=== PATIENT | female | born 1965 | race Two or more races ===

== ENCOUNTER 2024-02-19 12:15 | Inpatient (IN) | payer OTHER ==
[~2024-02-19] VITALS: Ht 160 cm; Wt 78.9 kg
[2024-02-19 12:33] VITALS: BP 94/49
[2024-02-25] MEDS ORDERED: METRONIDAZOLE/SODIUM CHLORIDE 500 MG/100 ML PIGGYBACK IV SCH (14:00)
[2024-02-25] MEDS ORDERED: levoFLOXacin IN DEXTROSE 5 % 5 MG/ML PIGGYBAG IV SCH (14:00)
[2024-02-25] MEDS ORDERED: BUPIVACAINE HCL 30 ML VIAL IJ ONE (14:15)
[2024-02-25] MEDS ORDERED: LIDOCAINE HCL 1%/EPINEPHRINE 20ML VIAL IJ ONE (14:15)
[2024-02-25] MEDS ORDERED: MORPHINE SULFATE 4 MG/ML CARTRIDGE IV PRN (17:00)
[2024-02-25] MEDS ORDERED: METOCLOPRAMIDE HCL 5 MG/ML VIAL IV SCH (17:00)
[2024-02-25] MEDS ORDERED: OxyCODONE HCL 5 MG TABLET (ROXICODONE) PO PRN (17:00)
[2024-02-25] MEDS ORDERED: CELECOXIB 200 MG CAPSULE PO SCH (17:00)
[2024-02-25] MEDS ORDERED: RINGERS SOLUTION,LACTATED 1,000 ML IV SCH (17:00)
[2024-02-25] MEDS ORDERED: ONDANSETRON HCL 2 MG/ML VIAL IV PRN (17:00)
[2024-02-25] MEDS ORDERED: POLYETHYLENE GLYCOL 3350 17 GM BLIST.PACK PO SCH (17:00)
[2024-02-25] MEDS ORDERED: ALBUTEROL SULFATE 3 ML/2.5 MG AMPUL.NEB IH SCH (18:31)
[2024-02-25] MEDS ORDERED: ENALAPRILAT DIHYDRATE 1.25 MG/ML VIAL IV PRN (18:45)
[2024-02-25] MEDS ORDERED: DEXTROSE 50 % IN WATER 0.5 G/ML DISP.SYRIN IV PRN (18:45)
[2024-02-25] MEDS ORDERED: INSULIN LISPRO 1,000 UNIT/10 ML UNITS SUBCUTANEO PRN (18:45)
[2024-02-25] MEDS ORDERED: PROMETHAZINE HCL 25 MG/ML AMPUL IM PRN (18:45)
[2024-02-25] MEDS ORDERED: MEPERIDINE HCL/PF 25 MG/ML VIAL IM PRN (18:45)
[2024-02-25] MEDS ORDERED: FAMOTIDINE/PF 20 MG/2 ML VIAL ONE (19:52)
[2024-02-25] MEDS ORDERED: METOCLOPRAMIDE HCL 5 MG/ML VIAL ONE (19:52)
[2024-02-25] MEDS ORDERED: ACETAMINOPHEN 500 MG GEL..CAP PO SCH (20:00)
[2024-02-25] MEDS ORDERED: FAMOTIDINE/PF 20 MG/2 ML VIAL IV PUSH SCH (21:00)
[2024-02-25] MEDS ORDERED: SIMETHICONE 125 MG CAPSULE PO SCH (21:00)
[2024-02-25 22:31] VITALS: BP 94/49; O2SAT 100
[2024-02-25 23:00] LABS: HEMOGLOBIN 12.6 g/dL (12.0-15.00); MEAN CELL VOLUME 92.9 fL (80.00-100.00); MEAN CORPUSCULAR HEMOGLOBIN 31.7 pg (27.00-32.0); MEAN CORPUSCULAR HGB CONC 34.2 g/dl (32.0-36.0); PLATELET COUNT 212 K/uL (150-450); RED BLOOD COUNT 3.98 M/uL (4.00-6.00)
[2024-02-26 00:41] VITALS: BP 134/70; O2SAT 100
[2024-02-26] MEDS ORDERED: GABAPENTIN 300 MG CAPSULE PO SCH (01:00)
[2024-02-26 07:30] LABS: HEMATOCRIT 34.4 % (36.0-45.00); HEMOGLOBIN 11.8 g/dL (12.0-15.00); MEAN CELL VOLUME 93.7 fL (80.00-100.00); MEAN CORPUSCULAR HEMOGLOBIN 32.2 pg (27.00-32.0); MEAN CORPUSCULAR HGB CONC 34.4 g/dl (32.0-36.0); PLATELET COUNT 202 K/uL (150-450); RED BLOOD COUNT 3.68 M/uL (4.00-6.00); RED CELL DISTRIBUTION WIDTH 13.8 % (11.5-14.5)
[2024-02-26 08:12] LABS: ALBUMIN 2.9 gm/dL (3.4-5.0); CALCIUM 8.4 mg/dL (8.5-10.1); CREATININE SERUM 0.84 mg/dL (0.55-1.02); GFR 69.16; MAGNESIUM 1.5 mg/dL (1.8-2.4); PHOSPHOROUS 3.1 mg/dL (2.5-4.9); POTASSIUM 3.62 mEq/L (3.5-5.1)
[2024-02-26] MEDS ORDERED: LACTULOSE 20 G/30 ML BLIST.PACK PO SCH (09:00)
[2024-02-26] MEDS ORDERED: DIOVAN HCT PO SCH (09:00)
[2024-02-26] MEDS ORDERED: LACTOBACILLUS ACIDOPHILUS 1 CAP CAP PO SCH (09:00)
[2024-02-26] MEDS ORDERED: HYOSCYAMINE SULFATE 0.125 MG TAB.SUBL SL SCH (09:00)
[2024-02-26] MEDS ORDERED: METOPROLOL SUCCINATE 100 MG TAB.SR.24H PO SCH (09:00)
[2024-02-26 09:43] VITALS: BP 113/73; O2SAT 97
[2024-02-26] MEDS ORDERED: DEXTROSE 50 % IN WATER 0.5 G/ML DISP.SYRIN IV PRN (11:45)
[2024-02-26] MEDS ORDERED: INSULIN LISPRO 1,000 UNIT/10 ML UNITS SUBCUTANEO PRN (11:45)
[2024-02-26] MEDS ORDERED: MAGNESIUM SULFATE IN WATER 50 ML IV NR (12:00)
[2024-02-26 16:12] VITALS: BP 90/60; O2SAT 98
[2024-02-26] MEDS ORDERED: ENOXAPARIN SODIUM 40 MG/0.4 ML SYRINGE SUBCUTANEO SCH (17:00)
[2024-02-26] MEDS ORDERED: ATORVASTATIN CALCIUM 40 MG TABLET PO SCH (17:00)
[2024-02-26] MEDS ORDERED: 0.9 % SODIUM CHLORIDE 1,000 ML IV SCH (17:45)
[2024-02-26 22:39] LABS: ABG PH 7.398 (7.35-7.45); ABG PO2 79.2 mmHg (80-100); ABG pCO2 38.4 mmHg (35-45); BASE EXCESS -1.4 mmol/l; BICARBONATE 23.1 mmol/l (23-25); SaO2 95.5 %
[2024-02-26 22:40] LABS: Tco2 24.3 mmol/l; allen test SATISFACTORY; o2 28 %; puncture site RADIAL LEFT
[2024-02-27 00:36] VITALS: BP 86/59; O2SAT 97
[2024-02-27 06:46] LABS: HEMATOCRIT 28.7 % (36.0-45.00); HEMOGLOBIN 9.7 g/dL (12.0-15.00); MEAN CELL VOLUME 95.2 fL (80.00-100.00); MEAN CORPUSCULAR HEMOGLOBIN 32.3 pg (27.00-32.0); MEAN CORPUSCULAR HGB CONC 33.9 g/dl (32.0-36.0); PLATELET COUNT 158 K/uL (150-450); RED BLOOD COUNT 3.01 M/uL (4.00-6.00); RED CELL DISTRIBUTION WIDTH 14.2 % (11.5-14.5)
[2024-02-27 07:38] LABS: ALBUMIN 2.3 gm/dL (3.4-5.0); BILIRUBIN TOTAL 0.6 mg/dL (0.3-1.2); CREATININE SERUM 1.21 mg/dL (0.55-1.02); GFR 45.39; GLOBULINA 2.6 G/DL (2.4-3.5); MAGNESIUM 2.1 mg/dL (1.8-2.4); PHOSPHOROUS 3.9 mg/dL (2.5-4.9); POTASSIUM 3.65 mEq/L (3.5-5.1); TOTAL PROTEIN 4.9 gm/dL (6.4-8.2)
[2024-02-27 08:00] VITALS: BP 91/57; O2SAT 97
[2024-02-27] MEDS ORDERED: RINGERS SOLUTION,LACTATED 500 ML IV ONE (08:15)
[2024-02-27] MEDS ORDERED: ENOXAPARIN SODIUM 40 MG/0.4 ML SYRINGE SUBCUTANEO SCH (09:00)
[2024-02-27] MEDS ORDERED: PATIENTS OWN MEDICATION (MEDICAMENTO EN PISO) PO SCH (09:00)
[2024-02-27] MEDS ORDERED: AMINOCAPROIC ACID 250 MG/ML VIAL IV STA (11:09)
[2024-02-27] MEDS ORDERED: ALBUTEROL SULFATE 3 ML/2.5 MG AMPUL.NEB IH SCH (13:00)
[2024-02-27 13:36] LABS: HEMOGLOBIN 11.2 g/dL (12.0-15.00); RED BLOOD COUNT 3.54 M/uL (4.00-6.00)
[2024-02-27 16:25] VITALS: BP 100/66; O2SAT 98
[2024-02-27] MEDS ORDERED: AMINOCAPROIC ACID 20 MG/ML ML IV SCH (18:00)
[2024-02-28] VITALS: BP 103/68; O2SAT 98
[2024-02-28 07:22] LABS: HEMATOCRIT 30.4 % (36.0-45.00); HEMOGLOBIN 10.5 g/dL (12.0-15.00); MEAN CELL VOLUME 92.6 fL (80.00-100.00); MEAN CORPUSCULAR HEMOGLOBIN 31.9 pg (27.00-32.0); MEAN CORPUSCULAR HGB CONC 34.5 g/dl (32.0-36.0); PLATELET COUNT 239 K/uL (150-450); RED BLOOD COUNT 3.28 M/uL (4.00-6.00); RED CELL DISTRIBUTION WIDTH 14.5 % (11.5-14.5)
[2024-02-28 08:14] LABS: ALBUMIN 2.5 gm/dL (3.4-5.0); BILIRUBIN TOTAL 0.68 mg/dL (0.3-1.2); CALCIUM 8.6 mg/dL (8.5-10.1); CREATININE SERUM 0.84 mg/dL (0.55-1.02); GFR 69.16; GLOBULINA 3.4 G/DL (2.4-3.5); MAGNESIUM 1.9 mg/dL (1.8-2.4); PHOSPHOROUS 2.9 mg/dL (2.5-4.9); POTASSIUM 3.79 mEq/L (3.5-5.1); TOTAL PROTEIN 5.9 gm/dL (6.4-8.2)
[2024-02-28 08:48] VITALS: BP 95/59; O2SAT 98
[2024-02-28] MEDS ORDERED: METOPROLOL SUCCINATE 25 MG TAB.SR.24H PO STA (08:54)
[2024-02-28] MEDS ORDERED: TAMSULOSIN HCL 0.4 MG CAP PO SCH (09:00)
[2024-02-28 15:55] VITALS: BP 100/69; O2SAT 98
[2024-02-29] VITALS: BP 112/65; O2SAT 98
[2024-02-29 07:54] LABS: HEMATOCRIT 26.2 % (36.0-45.00); HEMOGLOBIN 9.2 g/dL (12.0-15.00); MEAN CELL VOLUME 93.4 fL (80.00-100.00); MEAN CORPUSCULAR HEMOGLOBIN 32.7 pg (27.00-32.0); PLATELET COUNT 213 K/uL (150-450); RED CELL DISTRIBUTION WIDTH 14.2 % (11.5-14.5)
[2024-02-29 08:29] LABS: ALBUMIN 2.2 gm/dL (3.4-5.0); BILIRUBIN TOTAL 0.64 mg/dL (0.3-1.2); CREATININE SERUM 0.59 mg/dL (0.55-1.02); GFR 103.97; POTASSIUM 3.78 mEq/L (3.5-5.1); TOTAL PROTEIN 5.2 gm/dL (6.4-8.2)
[2024-02-29 09:34] VITALS: BP 136/61; O2SAT 98
[2024-02-29] MEDS ORDERED: METOPROLOL SUCCINATE 50 MG TAB.SR.24H PO NR (10:28)
[2024-02-29 16:00] VITALS: BP 111/56; O2SAT 100
[2024-03-01 00:52] VITALS: BP 131/66; O2SAT 98
[2024-03-01 08:00] VITALS: BP 116/73; O2SAT 96
[2024-03-01] MEDS ORDERED: METOPROLOL SUCCINATE 100 MG TAB.SR.24H PO SCH (09:00)
[2024-03-01] MEDS ORDERED: MEPERIDINE HCL/PF 25 MG/ML VIAL IV PRN (12:00)
[2024-03-01 16:03] VITALS: BP 115/81; O2SAT 95
[2024-03-01] MEDS ORDERED: LORazepam 2 MG/ML VIAL IV SCH (21:00)
[2024-03-02] VITALS: BP 121/77; O2SAT 96
[2024-03-02 07:47] VITALS: BP 114/70; O2SAT 98
[2024-03-02 16:21] VITALS: BP 123/78; O2SAT 95
[2024-03-02] MEDS ORDERED: MELATONIN 5 MG TABLET PO SCH (21:00)
[2024-03-03 00:23] VITALS: BP 124/78; O2SAT 96
[2024-03-03 07:56] LABS: HEMATOCRIT 27.4 % (36.0-45.00); HEMOGLOBIN 9.4 g/dL (12.0-15.00); MEAN CELL VOLUME 94.6 fL (80.00-100.00); MEAN CORPUSCULAR HEMOGLOBIN 32.5 pg (27.00-32.0); MEAN CORPUSCULAR HGB CONC 34.4 g/dl (32.0-36.0); PLATELET COUNT 290 K/uL (150-450); RED CELL DISTRIBUTION WIDTH 14.3 % (11.5-14.5)
[2024-03-03 08:42] LABS: CALCIUM 7.7 mg/dL (8.5-10.1); CREATININE SERUM 0.48 mg/dL (0.55-1.02); GFR 131.92; MAGNESIUM 1.6 mg/dL (1.8-2.4); PHOSPHOROUS 2.8 mg/dL (2.5-4.9); POTASSIUM 3.63 mEq/L (3.5-5.1)
[2024-03-03 10:18] VITALS: BP 124/75; O2SAT 98
[2024-03-03] MEDS ORDERED: CHOLESTYRAMINE/ASPARTAME LIGHT 4 G/PKT PACKET PO SCH (13:00)
[2024-03-03] MEDS ORDERED: MAGNESIUM SULFATE IN WATER 50 ML IV NR (14:00)
[2024-03-03 16:00] VITALS: BP 138/77; O2SAT 97
[2024-03-04 00:24] VITALS: BP 128/83; O2SAT 97
[2024-03-04] MEDS ORDERED: PANTOPRAZOLE SODIUM 40 MG/VIAL VIAL IV SCH (06:00)
[2024-03-04 07:49] LABS: HEMATOCRIT 24.7 % (36.0-45.00); MEAN CELL VOLUME 93.7 fL (80.00-100.00); MEAN CORPUSCULAR HGB CONC 34.6 g/dl (32.0-36.0); PLATELET COUNT 305 K/uL (150-450); RED BLOOD COUNT 2.63 M/uL (4.00-6.00)
[2024-03-04 07:51] LABS: HEMOGLOBIN 8.5 g/dL (12.0-15.00); MEAN CORPUSCULAR HEMOGLOBIN 32.3 pg (27.00-32.0)
[2024-03-04 08:00] VITALS: BP 108/68; O2SAT 95
[2024-03-04 12:26] LABS: PH,URINE 6.5 (5.0-8.0); URINE APPEARANCE Clear; URINE BILIRRUBIN Negative (NEGATIVE); URINE COLOR Yellow; URINE GLUCOSE Negative (NEGATIVE); URINE LEUKOCYTE Trace; URINE NITRATE Negative; URINE PROTEIN Negative (NEGATIVE); URINE UROBILINOGEN 0.2 E.U./dl
[2024-03-04 12:27] LABS: URINE BACTERIA 2231.1 uL (0.0-1933); URINE WBC 22.3 uL (0.0-23.2)
[2024-03-04 12:44] LABS: URINE BLOOD TRACES; URINE EPITHELIAL CELLS 0.7 uL (0.0-38.8); URINE KETONE 40 (NEGATIVE)
== END 2024-03-04 16:55 | disposition home or self-care (01) | DRG 330 ==
LOC: O/R 02-25 06:05 → SURH 02-25 12:15 → SURG 02-25 18:01 → SURH 02-25 20:15 → O/R 03-02 16:31 → SURH 03-02 16:32
PROVIDERS: Internal Medicine Geriatric Medicine; Surgery; ADMIT Colon & Rectal Surgery; ATTEND Colon & Rectal Surgery
PROC: 0DBP4ZZ Excision of Rectum, Percutaneous Endoscopic Approach (ICD-10-PCS; 2024-02-25)
PROC: 0UQG4ZZ Repair Vagina, Percutaneous Endoscopic Approach (ICD-10-PCS; 2024-02-25)
PROC: 0TQB4ZZ Repair Bladder, Percutaneous Endoscopic Approach (ICD-10-PCS; 2024-02-25)
PROC: 0DJD8ZZ Inspection of Lower Intestinal Tract, Via Natural or Artificial Opening Endoscopic (ICD-10-PCS; 2024-02-25)
PROC: 0DTN4ZZ Resection of Sigmoid Colon, Percutaneous Endoscopic Approach (ICD-10-PCS; principal; 2024-02-25 20:15)
DX: K57.20 Diverticulitis of large intestine with perforation and abscess without bleeding (principal); I97.191 Other postprocedural cardiac functional disturbances following other surgery; N32.1 Vesicointestinal fistula; R59.0 Localized enlarged lymph nodes; I95.81 Postprocedural hypotension; D64.9 Anemia, unspecified

== ENCOUNTER 2024-04-08 11:01 | Emergency (ER) | payer OTHER ==
[~2024-04-08] VITALS: Ht 160 cm; Wt 72.6 kg
[2024-04-08] MEDS ORDERED: DIOVAN40 MG PO (11:48)
[2024-04-08] MEDS ORDERED: XIGDUO XR 5 MG1 EAC1 PO (11:49)
[2024-04-08] MEDS ORDERED: TOPROL XL100 M1 (11:49)
[2024-04-08] MEDS ORDERED: LIPITOR40 M1 PO (11:49)
[2024-04-08] MEDS ORDERED: DIOVAN320 MG PO (11:49)
[2024-04-08 13:02] LABS: HEMATOCRIT 31.7 % (36.0-45.00); HEMOGLOBIN 10.5 g/dL (12.0-15.00); MEAN CELL VOLUME 88.8 fL (80.00-100.00); MEAN CORPUSCULAR HEMOGLOBIN 29.6 pg (27.00-32.0); MEAN CORPUSCULAR HGB CONC 33.3 g/dl (32.0-36.0); PLATELET COUNT 534 K/uL (150-450); RED BLOOD COUNT 3.57 M/uL (4.00-6.00); RED CELL DISTRIBUTION WIDTH 15.5 % (11.5-14.5)
[2024-04-08 13:34] LABS: URINE APPEARANCE Cloudy; URINE BILIRRUBIN Negative (NEGATIVE); URINE BLOOD Small; URINE COLOR Dark Yellow; URINE KETONE 15 (NEGATIVE); URINE LEUKOCYTE Small; URINE NITRATE Negative; URINE PROTEIN 30 (NEGATIVE)
[2024-04-08 13:37] LABS: URINE BACTERIA > 9821.5 uL (0.0-1933); URINE CAST 18.07 uL (0.0-1.40); URINE EPITHELIAL CELLS 22.5 uL (0.0-38.8); URINE GLUCOSE >=1000 MG/DL (NEGATIVE); URINE RBC 16.4 uL (0.0-20.8); URINE WBC 1296.3 uL (0.0-23.2)
[2024-04-08 13:44] LABS: ALBUMIN 3.1 gm/dL (3.4-5.0); BILIRUBIN TOTAL 0.42 mg/dL (0.3-1.2); BILIRUBIN,CONJUGATED 0.12 mg/dL (0.0-0.2); BILIRUBIN,UNCONJUGATED 0.3 mg/dL (0.0-0.6); CALCIUM 10.1 mg/dL (8.5-10.1); CREATININE SERUM 1.18 mg/dL (0.55-1.02); GFR 46.72; POTASSIUM 3.92 mEq/L (3.5-5.1); TOTAL PROTEIN 9.3 gm/dL (6.4-8.2)
== END 2024-04-08 14:08 | disposition home or self-care (01) ==
LOC: ER 11:03
PROVIDERS: General Practice
DX: N39.0 Urinary tract infection, site not specified (principal); R10.2 Pelvic and perineal pain; Z88.0 Allergy status to penicillin; Z88.6 Allergy status to analgesic agent

== ENCOUNTER 2024-04-27 14:47 | Outpatient (CLI) | payer OTHER ==
[~2024-04-27 14:47] MED LIST: DIOVAN320 MG PO; DIOVAN40 MG PO; LIPITOR40 M1 PO; TOPROL XL100 M1; XIGDUO XR 5 MG1 EAC1 PO
[2024-04-27 16:14] LABS: CREATININE SERUM 1.05 mg/dL (0.55-1.02)
== END 2024-04-27 14:56 | disposition home or self-care (01) ==
LOC: LAB 14:47
PROVIDERS: ATTEND Radiology Diagnostic Radiology
DX: K57.20 Diverticulitis of large intestine with perforation and abscess without bleeding (principal)

== ENCOUNTER 2024-05-06 08:51 | Outpatient (CLI) | payer OTHER | END 2024-05-06 09:01 | disposition home or self-care (01) | LOC: TOM 08:51 | PROVIDERS: ATTEND Colon & Rectal Surgery | DX: K57.20 Diverticulitis of large intestine with perforation and abscess without bleeding (principal) ==

== ENCOUNTER 2024-05-08 10:13 | Inpatient (IN) | payer OTHER ==
[~2024-05-08] VITALS: Ht 160 cm; Wt 70.3 kg
--- NOTE | 2024-05-08 11:23 | NUR ---
PACIENTE ALERTA Y ORIENTADA X3 QUIEN ACUDE A ER DEBIDO A QUE DR. SARA NICE LA ESTARA ADMITIENDO.
[2024-05-08] MEDS ORDERED: ONDANSETRON HCL 2 MG/ML VIAL IV PRN (11:30)
[2024-05-08] MEDS ORDERED: RINGERS SOLUTION,LACTATED 1,000 ML IV SCH (11:30)
[2024-05-08] MEDS ORDERED: MULTIVIT INFUSN,ADULT 4,VIT K 10 ML VIAL IV SCH (11:37)
[2024-05-08] MEDS ORDERED: INSULIN LISPRO 1,000 UNIT/10 ML UNITS SUBCUTANEO PRN (11:45)
[2024-05-08] MEDS ORDERED: DEXTROSE 50 % IN WATER 0.5 G/ML DISP.SYRIN IV PRN (11:45)
[2024-05-08 14:06] LABS: HEMATOCRIT 29.2 % (36.0-45.00); HEMOGLOBIN 9.6 g/dL (12.0-15.00); MEAN CELL VOLUME 85.5 fL (80.00-100.00); MEAN CORPUSCULAR HEMOGLOBIN 28.1 pg (27.00-32.0); MEAN CORPUSCULAR HGB CONC 32.8 g/dl (32.0-36.0); PLATELET COUNT 626 K/uL (150-450); RED BLOOD COUNT 3.41 M/uL (4.00-6.00); RED CELL DISTRIBUTION WIDTH 17.3 % (11.5-14.5)
[2024-05-08 14:18] LABS: ALBUMIN 2.7 gm/dL (3.4-5.0); BILIRUBIN TOTAL 0.27 mg/dL (0.3-1.2); CREATININE SERUM 0.84 mg/dL (0.55-1.02); GFR 69.16; GLOBULINA 5.7 G/DL (2.4-3.5); POTASSIUM 3.36 mEq/L (3.5-5.1); TOTAL PROTEIN 8.4 gm/dL (6.4-8.2)
[2024-05-08 14:19] LABS: INR 1.17; PARTIAL THROMBOPLASTIN TIME 25.3 SECONDS (22.0-34.0); PROTHROMBIN TIME 12.6 SECONDS (9.0-11.5)
[2024-05-08 15:30] LABS: ob POSITIVE (NEGATIVE)
[2024-05-08 15:31] LABS: FECAL LEUKOCYTES POSITIVE (NEGATIVE)
[2024-05-08 17:00] VITALS: BP 123/69; O2SAT 98
[2024-05-08] MEDS ORDERED: METRONIDAZOLE/SODIUM CHLORIDE 500 MG/100 ML PIGGYBACK IV SCH (17:00)
[2024-05-08] MEDS ORDERED: FAMOTIDINE/PF 20 MG/2 ML VIAL IV SCH (21:00)
[2024-05-08] MEDS ORDERED: CIPROFLOXACIN IN 5 % DEXTROSE 400 MG/200 ML PIGGYBAG IV SCH (21:00)
[2024-05-09 00:40] VITALS: BP 102/64; O2SAT 95
[2024-05-09 07:27] LABS: HEMATOCRIT 26.3 % (36.0-45.00); MEAN CORPUSCULAR HEMOGLOBIN 28.7 pg (27.00-32.0); MEAN CORPUSCULAR HGB CONC 33.3 g/dl (32.0-36.0); PLATELET COUNT 507 K/uL (150-450); RED BLOOD COUNT 3.06 M/uL (4.00-6.00)
[2024-05-09 08:06] LABS: HEMOGLOBIN 8.8 g/dL (12.0-15.00)
[2024-05-09 08:30] VITALS: BP 123/70; O2SAT 99
[2024-05-09] MEDS ORDERED: METOPROLOL SUCCINATE 100 MG TAB.SR.24H PO SCH (09:00)
[2024-05-09] MEDS ORDERED: LACTOBACILLUS ACIDOPHILUS 1 CAP CAP PO SCH (09:00)
[2024-05-09] MEDS ORDERED: FOLIC ACID 1 MG TABLET PO SCH (09:18)
[2024-05-09] MEDS ORDERED: SOD FERRIC GLUC COMPLX/SUCROSE 62.5 MG in 0.9 % SODIUM CHLORIDE 50 ML IV SCH (09:18)
[2024-05-09] MEDS ORDERED: Cyanocobalamin/Mecobalamin 1 TAB.SL SL SCH (09:18)
[2024-05-09 13:44] LABS: MYCOPLASMA PNEUMONIAE IGM NON REACTIVE (NO REACTIVE)
[2024-05-09 14:30] LABS: CALCIUM 8.8 mg/dL (8.5-10.1); CHOL HDL RATIO 4.1 (0-5.0); CREATININE SERUM 0.66 mg/dL (0.55-1.02); GFR 91.35; POTASSIUM 3.17 mEq/L (3.5-5.1)
[2024-05-09 16:00] VITALS: BP 123/69; O2SAT 100
[2024-05-09 16:18] LABS: URINE APPEARANCE Clear; URINE BILIRRUBIN Small (NEGATIVE); URINE COLOR Dark Yellow; URINE KETONE Negative (NEGATIVE); URINE LEUKOCYTE Small; URINE NITRATE Negative; URINE PROTEIN 30 (NEGATIVE)
[2024-05-09 16:24] LABS: URINE BACTERIA 437.2 uL (0.0-1933); URINE EPITHELIAL CELLS 19.4 uL (0.0-38.8); URINE RBC 46.4 uL (0.0-20.8); URINE WBC 64.9 uL (0.0-23.2)
[2024-05-09] MEDS ORDERED: AMINO ACIDS 4.25%/DEXTROSE 10% 1,000 ML CENTRAL SCH (17:00)
[2024-05-09 17:38] LABS: URINE GLUCOSE >=1000 MG/DL (NEGATIVE)
[2024-05-09 17:39] LABS: URINE BLOOD TRACE; URINE CAST 0.45 uL (0.0-1.40)
[2024-05-09 17:43] LABS: URINE YEAST NEGATIVE /hpf
[2024-05-09] MEDS ORDERED: MONTELUKAST SODIUM 10 MG TABLET PO SCH (19:34)
[2024-05-10 01:08] VITALS: BP 117/61; O2SAT 96
[2024-05-10 08:00] VITALS: BP 135/72; O2SAT 100
[2024-05-10 08:20] LABS: ALBUMIN 2.4 gm/dL (3.4-5.0); BILIRUBIN TOTAL 0.23 mg/dL (0.3-1.2); CALCIUM 8.7 mg/dL (8.5-10.1); CREATININE SERUM 0.69 mg/dL (0.55-1.02); GFR 86.78; GLOBULINA 4.3 G/DL (2.4-3.5); MAGNESIUM 1.5 mg/dL (1.8-2.4); PHOSPHOROUS 2.3 mg/dL (2.5-4.9); POTASSIUM 4.06 mEq/L (3.5-5.1); TOTAL PROTEIN 6.7 gm/dL (6.4-8.2)
[2024-05-10 08:28] LABS: C-REACTIVE PROTEIN 4.16 MG/DL (0.00-0.29)
[2024-05-10 08:35] LABS: HEMATOCRIT 29.2 % (36.0-45.00); HEMOGLOBIN 9.3 g/dL (12.0-15.00); MEAN CELL VOLUME 86.8 fL (80.00-100.00); MEAN CORPUSCULAR HEMOGLOBIN 27.5 pg (27.00-32.0); MEAN CORPUSCULAR HGB CONC 31.7 g/dl (32.0-36.0); RED BLOOD COUNT 3.37 M/uL (4.00-6.00); RED CELL DISTRIBUTION WIDTH 17.2 % (11.5-14.5)
[2024-05-10 08:36] LABS: PLATELET COUNT 431 K/uL (150-450)
[2024-05-10] MEDS ORDERED: FLUTICASONE PROPIONATE 50 MCG SPRAY NASAL SCH (09:00)
[2024-05-10] MEDS ORDERED: MAGNESIUM SULFATE IN WATER 4 GM/100 ML PIGGYBACK IV NR (13:45)
[2024-05-10] MEDS ORDERED: POTASSIUM PHOS,M-BASIC-D-BASIC 15 MM in 0.9 % SODIUM CHLORIDE 250 ML IV NR (13:45)
[2024-05-10 16:36] VITALS: BP 132/62; O2SAT 95
[2024-05-11 00:56] VITALS: BP 107/66; O2SAT 94
[2024-05-11] MEDS ORDERED: ACETAMINOPHEN 500 MG GEL..CAP PO SCH (08:00)
[2024-05-11 08:16] VITALS: BP 133/77; O2SAT 100
[2024-05-11] MEDS ORDERED: INSULIN LISPRO 1,000 UNIT/10 ML UNITS SUBCUTANEO PRN (13:30)
[2024-05-11] MEDS ORDERED: DEXTROSE 50 % IN WATER 0.5 G/ML DISP.SYRIN IV PRN (13:30)
[2024-05-11 16:49] VITALS: BP 127/57; O2SAT 98
[2024-05-11] MEDS ORDERED: THIAMINE HCL 100 MG/ML 2 ML VIAL IV SCH (17:00)
[2024-05-11] MEDS ORDERED: MULTIVIT INFUSN,ADULT 4,VIT K 10 ML VIAL IV SCH (17:00)
[2024-05-11] MEDS ORDERED: BENZONATATE 100 MG CAPSULE PO SCH (17:00)
[2024-05-12 01:20] VITALS: BP 118/64; O2SAT 99
[2024-05-12 08:00] VITALS: BP 129/58; O2SAT 98
[2024-05-12 08:05] LABS: HEMATOCRIT 27.1 % (36.0-45.00); MEAN CELL VOLUME 87.4 fL (80.00-100.00); MEAN CORPUSCULAR HGB CONC 32.9 g/dl (32.0-36.0); PLATELET COUNT 323 K/uL (150-450); RED CELL DISTRIBUTION WIDTH 16.7 % (11.5-14.5)
[2024-05-12 08:08] LABS: MEAN CORPUSCULAR HEMOGLOBIN 28.7 pg (27.00-32.0)
[2024-05-12 08:09] LABS: HEMOGLOBIN 8.9 g/dL (12.0-15.00)
[2024-05-12] MEDS ORDERED: INSULIN NPH HUMAN ISOPHANE 1,000 UNITS/10 ML UNITS SUBCUTANEO SCH (09:00)
[2024-05-12 09:03] LABS: CALCIUM 8.2 mg/dL (8.5-10.1); CREATININE SERUM 0.51 mg/dL (0.55-1.02); GFR 123.01; MAGNESIUM 1.8 mg/dL (1.8-2.4); POTASSIUM 3.67 mEq/L (3.5-5.1)
[2024-05-12 09:21] LABS: PHOSPHOROUS 1.5 mg/dL (2.5-4.9)
[2024-05-12] MEDS ORDERED: POTASSIUM PHOS,M-BASIC-D-BASIC 15 MM in 0.9 % SODIUM CHLORIDE 250 ML IV NR (09:30)
[2024-05-12 16:00] VITALS: BP 138/68; O2SAT 100
[2024-05-13 02:01] VITALS: BP 139/84; O2SAT 100
[2024-05-13 08:00] VITALS: BP 123/76; O2SAT 97
[2024-05-13] MEDS ORDERED: INSULIN NPH HUMAN ISOPHANE 1,000 UNITS/10 ML UNITS SUBCUTANEO SCH (09:00)
[2024-05-13] MEDS ORDERED: INSULIN REGULAR, HUMAN 1,000 UNIT/10 ML UNITS SUBCUTANEO ONE (14:30)
[2024-05-13] MEDS ORDERED: BUPIVACAINE HCL 30 ML VIAL IJ ONE (17:00)
[2024-05-13] MEDS ORDERED: LIDOCAINE HCL 1%/EPINEPHRINE 20ML VIAL IJ ONE (17:00)
[2024-05-13] MEDS ORDERED: ONDANSETRON HCL 2 MG/ML VIAL IV PRN (17:15)
[2024-05-13] MEDS ORDERED: OxyCODONE HCL 5 MG TABLET (ROXICODONE) PO PRN (17:15)
[2024-05-13] MEDS ORDERED: RINGERS SOLUTION,LACTATED 1,000 ML IV SCH (17:15)
[2024-05-13] MEDS ORDERED: MEPERIDINE HCL 25 MG/ML AMPUL IV ONE (18:30)
[2024-05-13 20:00] VITALS: BP 136/74; O2SAT 98
[2024-05-13] MEDS ORDERED: ACETAMINOPHEN 500 MG GEL..CAP PO SCH (20:00)
[2024-05-13 20:31] LABS: HEMATOCRIT 27.5 % (36.0-45.00); HEMOGLOBIN 9.1 g/dL (12.0-15.00); MEAN CELL VOLUME 85.5 fL (80.00-100.00); MEAN CORPUSCULAR HEMOGLOBIN 28.2 pg (27.00-32.0); PLATELET COUNT 271 K/uL (150-450); RED BLOOD COUNT 3.22 M/uL (4.00-6.00); RED CELL DISTRIBUTION WIDTH 17.7 % (11.5-14.5)
[2024-05-13] MEDS ORDERED: GABAPENTIN 300 MG CAPSULE PO SCH (21:00)
[2024-05-14 00:55] VITALS: BP 126/61; O2SAT 97
[2024-05-14] MEDS ORDERED: CELECOXIB 200 MG CAPSULE PO SCH (05:00)
[2024-05-14 08:05] VITALS: BP 120/74; O2SAT 97
[2024-05-14 08:39] LABS: HEMATOCRIT 28.8 % (36.0-45.00); HEMOGLOBIN 9.4 g/dL (12.0-15.00); MEAN CELL VOLUME 87.2 fL (80.00-100.00); MEAN CORPUSCULAR HEMOGLOBIN 28.4 pg (27.00-32.0); MEAN CORPUSCULAR HGB CONC 32.5 g/dl (32.0-36.0); PLATELET COUNT 253 K/uL (150-450); RED CELL DISTRIBUTION WIDTH 17.5 % (11.5-14.5)
[2024-05-14] MEDS ORDERED: ALBUTEROL SULFATE 3 ML/2.5 MG AMPUL.NEB IH SCH (09:00)
[2024-05-14] MEDS ORDERED: PANTOPRAZOLE SODIUM 40 MG/VIAL VIAL IV SCH (09:00)
[2024-05-14] MEDS ORDERED: LACTULOSE 20 G/30 ML BLIST.PACK PO SCH (09:00)
[2024-05-14] MEDS ORDERED: HYOSCYAMINE SULFATE 0.125 MG TAB.SUBL SL SCH (09:00)
[2024-05-14 09:12] LABS: ALBUMIN 2.5 gm/dL (3.4-5.0); CALCIUM 8.6 mg/dL (8.5-10.1); CREATININE SERUM 0.62 mg/dL (0.55-1.02); GFR 98.19; POTASSIUM 3.55 mEq/L (3.5-5.1)
[2024-05-14 09:48] LABS: MAGNESIUM 1.3 mg/dL (1.8-2.4); PHOSPHOROUS 1.3 mg/dL (2.5-4.9)
[2024-05-14] MEDS ORDERED: POTASSIUM PHOS,M-BASIC-D-BASIC 15 MM in 0.9 % SODIUM CHLORIDE 250 ML IV NR (11:15)
[2024-05-14] MEDS ORDERED: MAGNESIUM SULFATE IN WATER 50 ML IV NR (11:15)
[2024-05-14] MEDS ORDERED: MORPHINE SULFATE 4 MG/ML CARTRIDGE IV PRN (12:45)
[2024-05-14] MEDS ORDERED: MEPERIDINE HCL/PF 25 MG/ML VIAL IM PRN (13:00)
[2024-05-14] MEDS ORDERED: PROMETHAZINE HCL 25 MG/ML AMPUL IM PRN (13:00)
[2024-05-14] MEDS ORDERED: INSULIN NPH HUMAN ISOPHANE 1,000 UNITS/10 ML UNITS SUBCUTANEO SCH (17:00)
[2024-05-14] MEDS ORDERED: ENOXAPARIN SODIUM 40 MG/0.4 ML SYRINGE SUBCUTANEO SCH (17:00)
[2024-05-14] MEDS ORDERED: POLYETHYLENE GLYCOL 3350 17 GM BLIST.PACK PO SCH (17:00)
[2024-05-14 17:05] VITALS: BP 134/67; O2SAT 96
[2024-05-15] VITALS: BP 111/70; O2SAT 95
[2024-05-15 07:09] LABS: HEMATOCRIT 27.9 % (36.0-45.00); HEMOGLOBIN 9.2 g/dL (12.0-15.00); MEAN CORPUSCULAR HEMOGLOBIN 28.3 pg (27.00-32.0); MEAN CORPUSCULAR HGB CONC 32.9 g/dl (32.0-36.0); PLATELET COUNT 236 K/uL (150-450); RED BLOOD COUNT 3.24 M/uL (4.00-6.00); RED CELL DISTRIBUTION WIDTH 17.6 % (11.5-14.5)
[2024-05-15 07:46] LABS: CALCIUM 7.8 mg/dL (8.5-10.1); CREATININE SERUM 0.46 mg/dL (0.55-1.02); GFR 138.56; MAGNESIUM 1.8 mg/dL (1.8-2.4)
[2024-05-15 07:57] LABS: PHOSPHOROUS 1.7 mg/dL (2.5-4.9); POTASSIUM 2.61 mEq/L (3.5-5.1)
[2024-05-15 08:00] VITALS: BP 133/74; O2SAT 100
[2024-05-15] MEDS ORDERED: ENOXAPARIN SODIUM 40 MG/0.4 ML SYRINGE SUBCUTANEO SCH (09:00)
[2024-05-15] MEDS ORDERED: MAGNESIUM SULFATE IN WATER 50 ML IV NR (09:45)
[2024-05-15] MEDS ORDERED: POTASSIUM PHOS,M-BASIC-D-BASIC 15 MM in 0.9 % SODIUM CHLORIDE 250 ML IV NR (09:45)
[2024-05-15] MEDS ORDERED: POTASSIUM CHLORIDE 20MEQ/100ML H2O PB IV NR (10:00)
[2024-05-15] MEDS ORDERED: IOVERSOL 320 MG/ML - 50 ML VIAL IV ONE (13:30)
[2024-05-15] MEDS ORDERED: FLUCONAZOLE IN NACL,ISO-OSM 400 MG/200 ML PIGGYBAG IV NR (14:00)
[2024-05-15 16:57] VITALS: BP 122/65; O2SAT 98
[2024-05-15] MEDS ORDERED: GUAIFENESIN 600 MG TABLET.SA PO SCH (17:00)
[2024-05-15] MEDS ORDERED: OSELTAMIVIR PHOSPHATE 75 MG CAPSULE PO STA (19:03)
[2024-05-16 00:57] VITALS: BP 144/78; O2SAT 100
[2024-05-16 08:00] VITALS: BP 142/81; O2SAT 98
[2024-05-16] MEDS ORDERED: OSELTAMIVIR PHOSPHATE 75 MG CAPSULE PO SCH (09:00)
[2024-05-16 10:24] LABS: HEMATOCRIT 26.1 % (36.0-45.00); MEAN CELL VOLUME 100.4 fL (80.00-100.00); MEAN CORPUSCULAR HGB CONC 28.8 g/dl (32.0-36.0); RED CELL DISTRIBUTION WIDTH 18.7 % (11.5-14.5)
[2024-05-16 11:35] LABS: MEAN CORPUSCULAR HEMOGLOBIN 28.8 pg (27.00-32.0); PLATELET COUNT 79 K/uL (150-450)
[2024-05-16] MEDS ORDERED: FLUCONAZOLE IN NACL,ISO-OSM 200 MG/100 ML PIGGYBAG IV SCH (12:00)
[2024-05-16 12:52] LABS: HEMOGLOBIN 7.5 g/dL (12.0-15.00)
[2024-05-16 20:09] VITALS: BP 109/72; O2SAT 98
[2024-05-17 00:40] VITALS: BP 100/63; O2SAT 100
[2024-05-17 08:00] VITALS: BP 134/84; O2SAT 100
[2024-05-17 16:00] VITALS: BP 125/63; O2SAT 99
[2024-05-17 18:28] LABS: HEMATOCRIT 28.4 % (36.0-45.00); MEAN CORPUSCULAR HGB CONC 32.9 g/dl (32.0-36.0); PLATELET COUNT 262 K/uL (150-450); RED BLOOD COUNT 3.35 M/uL (4.00-6.00); RED CELL DISTRIBUTION WIDTH 18.1 % (11.5-14.5)
[2024-05-17 18:32] LABS: MEAN CORPUSCULAR HEMOGLOBIN 27.7 pg (27.00-32.0)
[2024-05-17 18:33] LABS: HEMOGLOBIN 9.3 g/dL (12.0-15.00)
[2024-05-17 18:55] LABS: CALCIUM 8.3 mg/dL (8.5-10.1); CREATININE SERUM 0.81 mg/dL (0.55-1.02); GFR 72.12; MAGNESIUM 1.5 mg/dL (1.8-2.4); PHOSPHOROUS 2.6 mg/dL (2.5-4.9); POTASSIUM 3.43 mEq/L (3.5-5.1)
[2024-05-18 00:30] VITALS: BP 126/68; O2SAT 100
[2024-05-18] MEDS ORDERED: MAGNESIUM SULFATE IN WATER 50 ML IV ONE (03:00)
[2024-05-18] MEDS ORDERED: POTASSIUM CHLORIDE 20MEQ/100ML H2O PB IV ONE (03:00)
[2024-05-18 07:28] LABS: HEMATOCRIT 27.6 % (36.0-45.00); MEAN CELL VOLUME 86.1 fL (80.00-100.00); MEAN CORPUSCULAR HGB CONC 32.5 g/dl (32.0-36.0); PLATELET COUNT 224 K/uL (150-450); RED BLOOD COUNT 3.21 M/uL (4.00-6.00); RED CELL DISTRIBUTION WIDTH 17.7 % (11.5-14.5)
[2024-05-18 08:00] VITALS: BP 145/72; O2SAT 100
[2024-05-18 08:07] LABS: ALBUMIN 2.3 gm/dL (3.4-5.0); ALKALINE PHOSPHATASE 71 U/L (50-136); ALT/SGPT 13 U/L (12-78); ANION GAP 7 (10.0-20.0); AST/SGOT 13 U/L (15-37); BILIRUBIN TOTAL 0.22 mg/dL (0.3-1.2); BILIRUBIN,CONJUGATED < 0.10 mg/dL (0.0-0.2); BILIRUBIN,UNCONJUGATED 0.12 mg/dL (0.0-0.6); BLOOD UREA NITROGEN 13 mg/dL (7-18); BUN CREA RATIO 23 (7.0-25.0); CALCIUM 8.4 mg/dL (8.5-10.1); CARBON DIOXIDE 30 mEq/L (21-32); CHLORIDE 111 mmol/L (98-107); CREATININE SERUM 0.57 mg/dL (0.55-1.02); GFR 108.19; GLOBULINA 3.9 G/DL (2.4-3.5); GLUCOSE FASTING 151 mg/dL (65-100); OSMOLALITY SERUM 288 MOSM/KG (275-295); POTASSIUM 5.14 mEq/L (3.5-5.1); SODIUM 143 mmol/L (136-145); TOTAL PROTEIN 6.2 gm/dL (6.4-8.2)
[2024-05-18 08:17] LABS: PARTIAL THROMBOPLASTIN TIME 21.3 SECONDS (22.0-34.0)
[2024-05-18 08:38] LABS: INR 1.05; PROTHROMBIN TIME 11.4 SECONDS (9.0-11.5)
[2024-05-18 09:36] LABS: UREA CLEARANCE 26.6 ML/MIN
[2024-05-18 16:00] VITALS: BP 117/69; O2SAT 100
[2024-05-18] MEDS ORDERED: fentaNYL CITRATE 50 MCG/ML AMPUL IV PUSH ONE (19:00)
[2024-05-18] MEDS ORDERED: MIDAZOLAM HCL 2 MG/2 ML VIAL IV PUSH ONE (19:00)
[2024-05-19 00:08] VITALS: BP 131/69; O2SAT 99
[2024-05-19 08:00] VITALS: BP 135/71; O2SAT 99
[2024-05-19] MEDS ORDERED: PANTOPRAZOLE SODIUM 40 MG TABLET.DR PO SCH (09:00)
[2024-05-19] MEDS ORDERED: ENOXAPARIN SODIUM 40 MG/0.4 ML SYRINGE SUBCUTANEO SCH (17:00)
[2024-05-19] MEDS ORDERED: ALBUTEROL SULFATE 3 ML/2.5 MG AMPUL.NEB IH SCH (17:00)
[2024-05-19 18:15] VITALS: BP 112/73; O2SAT 96
[2024-05-20] VITALS: BP 156/86; O2SAT 100
[2024-05-20] MEDS ORDERED: THIAMINE HCL 100 MG TABLET PO SCH (09:00)
[2024-05-20 09:47] VITALS: BP 166/80; O2SAT 100
[2024-05-20 16:00] VITALS: BP 134/83; O2SAT 99
[2024-05-21 00:10] VITALS: BP 126/62; O2SAT 100
[2024-05-21] MEDS ORDERED: INSULIN NPH HUMAN ISOPHANE 1,000 UNITS/10 ML UNITS SUBCUTANEO SCH (08:00)
[2024-05-21 08:46] LABS: HEMATOCRIT 30.7 % (36.0-45.00); MEAN CELL VOLUME 86.7 fL (80.00-100.00); MEAN CORPUSCULAR HEMOGLOBIN 28.4 pg (27.00-32.0); MEAN CORPUSCULAR HGB CONC 32.7 g/dl (32.0-36.0); PLATELET COUNT 307 K/uL (150-450); RED BLOOD COUNT 3.54 M/uL (4.00-6.00); RED CELL DISTRIBUTION WIDTH 18.3 % (11.5-14.5)
[2024-05-21 09:33] LABS: CALCIUM 9.2 mg/dL (8.5-10.1); CREATININE SERUM 0.74 mg/dL (0.55-1.02); GFR 80.05; MAGNESIUM 1.6 mg/dL (1.8-2.4); PHOSPHOROUS 2.6 mg/dL (2.5-4.9); POTASSIUM 3.56 mEq/L (3.5-5.1)
[2024-05-21] MEDS ORDERED: INTESTINEX680 M1 PO (11:03)
[2024-05-21] MEDS ORDERED: NEURONTIN300 MG PO (11:03)
[2024-05-21] MEDS ORDERED: MAGNESIUM SULFATE IN WATER 50 ML IV NR (13:00)
== END 2024-05-21 14:13 | disposition home or self-care (01) | DRG 982 ==
LOC: ER 10:15 → SURH 13:18
PROVIDERS: Internal Medicine Geriatric Medicine; Internal Medicine Infectious Disease; Surgery; ADMIT Colon & Rectal Surgery; ATTEND Colon & Rectal Surgery
PROC: 02HV33Z Insertion of Infusion Device into Superior Vena Cava, Percutaneous Approach (ICD-10-PCS; 2024-05-09)
PROC: BW21YZZ Computerized Tomography (CT Scan) of Abdomen and Pelvis using Other Contrast (ICD-10-PCS; 2024-05-09)
PROC: 0D1L0Z4 Bypass Transverse Colon to Cutaneous, Open Approach (ICD-10-PCS; principal; 2024-05-13 12:00)
PROC: BT1DZZZ Fluoroscopy of Right Kidney, Ureter and Bladder (ICD-10-PCS; 2024-05-15)
PROC: 0T9030Z Drainage of Right Kidney with Drainage Device, Percutaneous Approach (ICD-10-PCS; 2024-05-18)
DX: N82.1 Other female urinary-genital tract fistulae (principal); N13.30 Unspecified hydronephrosis; N39.0 Urinary tract infection, site not specified; N13.4 Hydroureter; N82.3 Fistula of vagina to large intestine; D64.9 Anemia, unspecified; E78.5 Hyperlipidemia, unspecified; I10 Essential (primary) hypertension; Z79.4 Long term (current) use of insulin; E11.65 Type 2 diabetes mellitus with hyperglycemia; J44.9 Chronic obstructive pulmonary disease, unspecified; J10.1 Influenza due to other identified influenza virus with other respiratory manifestations

== ENCOUNTER 2024-06-23 22:14 | Inpatient (IN) | payer OTHER ==
[~2024-06-23] VITALS: Ht 160 cm; Wt 68.0 kg
[~2024-06-23 22:14] MED LIST changes: +INTESTINEX680 M1 PO; +NEURONTIN300 MG PO
[2024-06-24] MEDS ORDERED: 0.9 % SODIUM CHLORIDE 1,000 ML IV ONE (01:00)
[2024-06-24] MEDS ORDERED: CIPROFLOXACIN IN 5 % DEXTROSE 400 MG/200 ML PIGGYBAG IV STA (01:20)
[2024-06-24] MEDS ORDERED: CIPROFLOXACIN IN 5 % DEXTROSE 400 MG/200 ML PIGGYBAG IV ONE (01:45)
[2024-06-24 02:11] LABS: HEMATOCRIT 31.5 % (36.0-45.00); MEAN CELL VOLUME 88.1 fL (80.00-100.00); MEAN CORPUSCULAR HGB CONC 33.5 g/dl (32.0-36.0); PLATELET COUNT 291 K/uL (150-450); RED BLOOD COUNT 3.57 M/uL (4.00-6.00); RED CELL DISTRIBUTION WIDTH 19.1 % (11.5-14.5)
[2024-06-24 02:13] LABS: HEMOGLOBIN 10.5 g/dL (12.0-15.00); MEAN CORPUSCULAR HEMOGLOBIN 29.4 pg (27.00-32.0)
[2024-06-24 02:21] LABS: INR 1.04; PROTHROMBIN TIME 11.3 SECONDS (9.0-11.5)
[2024-06-24 02:36] LABS: ALBUMIN 3.1 gm/dL (3.4-5.0); BILIRUBIN TOTAL 0.27 mg/dL (0.3-1.2); CALCIUM 8.9 mg/dL (8.5-10.1); CREATININE SERUM 0.76 mg/dL (0.55-1.02); GFR 77.37; GLOBULINA 3.8 G/DL (2.4-3.5); POTASSIUM 3.79 mEq/L (3.5-5.1); TOTAL PROTEIN 6.9 gm/dL (6.4-8.2)
[2024-06-24 04:18] LABS: URINE APPEARANCE Clear; URINE BILIRRUBIN Negative (NEGATIVE); URINE BLOOD Negative; URINE COLOR Yellow; URINE KETONE Negative (NEGATIVE); URINE LEUKOCYTE Small; URINE NITRATE Negative; URINE PROTEIN 30 (NEGATIVE); URINE UROBILINOGEN 0.2 E.U./dl
[2024-06-24 04:22] LABS: URINE BACTERIA 199.4 uL (0.0-1933); URINE RBC 8.9 uL (0.0-20.8); URINE WBC 189.9 uL (0.0-23.2)
[2024-06-24 05:04] LABS: URINE CRYSTALS FEW /HPF; URINE GLUCOSE 500 MG/DL (NEGATIVE)
[2024-06-24] MEDS ORDERED: METOPROLOL SUCCINATE 100 MG TAB.SR.24H PO SCH (12:20)
[2024-06-24] MEDS ORDERED: ENALAPRILAT DIHYDRATE 1.25 MG/ML VIAL IV PRN (12:30)
[2024-06-24] MEDS ORDERED: DEXTROSE 50 % IN WATER 0.5 G/ML DISP.SYRIN IV PRN (12:45)
[2024-06-24] MEDS ORDERED: INSULIN LISPRO 1,000 UNIT/10 ML UNITS SUBCUTANEO PRN (12:45)
[2024-06-24 15:54] VITALS: BP 117/74; O2SAT 100
[2024-06-24] MEDS ORDERED: ATORVASTATIN CALCIUM 40 MG TABLET PO SCH (17:00)
[2024-06-24] MEDS ORDERED: LIPITOR40 M1 PO (20:13)
[2024-06-24] MEDS ORDERED: TOPROL XL100 M1 PO (20:13)
[2024-06-24] MEDS ORDERED: XIGDUO XR 5 MG1 EAC1 PO (20:13)
[2024-06-24] MEDS ORDERED: POM (MEDICAMENTO EN PO (20:13)
[2024-06-24] MEDS ORDERED: MONTELUKAST SODIUM 10 MG TABLET PO SCH (21:00)
[2024-06-25] MEDS ORDERED: PATIENTS OWN MEDICATION (MEDICAMENTO EN PISO) PO SCH (09:00)
== END 2024-06-24 21:00 | DRG 699 ==
LOC: ER 22:14 → SEC-K 06-24 13:20
PROVIDERS: General Practice; ADMIT Internal Medicine Geriatric Medicine; ATTEND Internal Medicine Geriatric Medicine
PROC: BW21Y0Z Computerized Tomography (CT Scan) of Abdomen and Pelvis using Other Contrast, Unenhanced and Enhanced (ICD-10-PCS; principal; 2024-06-24)
DX: T83.022A Displacement of nephrostomy catheter, initial encounter (principal); K57.20 Diverticulitis of large intestine with perforation and abscess without bleeding; N82.4 Other female intestinal-genital tract fistulae; Y65.8 Other specified misadventures during surgical and medical care; E78.00 Pure hypercholesterolemia, unspecified; E11.9 Type 2 diabetes mellitus without complications; I11.9 Hypertensive heart disease without heart failure

== ENCOUNTER 2024-09-16 06:34 | Day surgery (SDC) | payer OTHER ==
[~2024-09-16 06:34] MED LIST changes: +POM (MEDICAMENTO EN PO; +TOPROL XL100 M1 PO
[2024-09-16] MEDS ORDERED: fentaNYL CITRATE 50 MCG/ML AMPUL IV PUSH ONE (09:00)
[2024-09-16] MEDS ORDERED: MIDAZOLAM HCL 2 MG/2 ML VIAL IV ONE (09:00)
[2024-09-16] MEDS ORDERED: DIPHENHYDRAMINE HCL 50 MG/ML VIAL 1ML IV ONE (09:00)
== END 2024-09-16 10:05 | disposition home or self-care (01) ==
LOC: AMB-ENDOS 06:34
PROVIDERS: ATTEND Colon & Rectal Surgery
DX: K63.5 Polyp of colon (principal); K52.89 Other specified noninfective gastroenteritis and colitis; K64.2 Third degree hemorrhoids; K62.89 Other specified diseases of anus and rectum; Z88.5 Allergy status to narcotic agent; Z88.0 Allergy status to penicillin

== ENCOUNTER 2025-05-18 10:00 | Day surgery (SDC) | payer OTHER ==
[2025-05-18] MEDS ORDERED: MIDAZOLAM HCL 2 MG/2 ML VIAL IV ONE (11:00)
[2025-05-18] MEDS ORDERED: DIPHENHYDRAMINE HCL 50 MG/ML VIAL 1ML IV ONE (11:00)
[2025-05-18] MEDS ORDERED: ONDANSETRON HCL 2 MG/ML VIAL IV ONE (11:00)
[2025-05-18] MEDS ORDERED: fentaNYL CITRATE 50 MCG/ML AMPUL IV PUSH ONE (11:00)
== END 2025-05-18 12:00 | disposition home or self-care (01) ==
LOC: AMB-ENDOS 10:00
PROVIDERS: ATTEND Colon & Rectal Surgery
DX: K62.4 Stenosis of anus and rectum (principal); K57.20 Diverticulitis of large intestine with perforation and abscess without bleeding